=== PATIENT | female | born 1975 | race Two or more races ===

== ENCOUNTER → 2018-03-07 | Outpatient (CLI) | payer OTHER | END | disposition home or self-care (01) | LOC: MAMO-SONO 14:45 | DX: Z12.31 Encounter for screening mammogram for malignant neoplasm of breast (principal); N64.4 Mastodynia ==

== ENCOUNTER 2019-06-11 11:01 | Outpatient (CLI) | payer OTHER | END 2019-06-11 11:13 | disposition home or self-care (01) | LOC: MAMO-SONO 11:01 | DX: N64.4 Mastodynia (principal); Z12.31 Encounter for screening mammogram for malignant neoplasm of breast; Z87.898 Personal history of other specified conditions ==

== ENCOUNTER → 2020-08-25 | Outpatient (CLI) | payer OTHER | END | disposition home or self-care (01) | LOC: MAMO-SONO 08:15 | PROVIDERS: ATTEND Obstetrics & Gynecology | DX: N60.01 Solitary cyst of right breast (principal); N60.02 Solitary cyst of left breast; R05 Cough ==

== ENCOUNTER 2022-01-12 10:18 | Outpatient (CLI) | payer OTHER | END 2022-01-12 10:33 | disposition home or self-care (01) | LOC: MAMO-SONO 10:18 | PROVIDERS: ATTEND Obstetrics & Gynecology | DX: N60.21 Fibroadenosis of right breast (principal); N60.22 Fibroadenosis of left breast ==

== ENCOUNTER 2023-01-19 12:20 | Outpatient (CLI) | payer OTHER | END 2023-01-19 12:27 | disposition home or self-care (01) | LOC: MAMO-SONO 12:20 | PROVIDERS: ATTEND Obstetrics & Gynecology | DX: N60.21 Fibroadenosis of right breast (principal); N60.22 Fibroadenosis of left breast; Z12.31 Encounter for screening mammogram for malignant neoplasm of breast ==

== ENCOUNTER → 2024-03-08 13:31 | Outpatient (CLI) | payer OTHER | END | disposition home or self-care (01) | LOC: MAMO-SONO 13:17 | PROVIDERS: ATTEND Obstetrics & Gynecology | DX: N60.21 Fibroadenosis of right breast (principal); N60.22 Fibroadenosis of left breast ==

== ENCOUNTER 2024-06-01 12:18 | Outpatient (CLI) | payer OTHER | END 2024-06-01 12:20 | disposition home or self-care (01) | LOC: SONOGRAMA 12:18 | PROVIDERS: ATTEND Obstetrics & Gynecology | DX: N93.9 Abnormal uterine and vaginal bleeding, unspecified (principal) ==

== ENCOUNTER 2024-10-24 09:34 | Outpatient (CLI) | payer OTHER | END 2024-10-24 09:35 | disposition home or self-care (01) | LOC: RAD 09:34 | DX: R91.8 Other nonspecific abnormal finding of lung field (principal); R50.9 Fever, unspecified; R05.9 Cough, unspecified ==

== ENCOUNTER 2025-03-13 15:50 | Outpatient (CLI) | payer OTHER | END 2025-03-13 15:57 | disposition home or self-care (01) | LOC: MAMO-SONO 15:50 | PROVIDERS: ATTEND Obstetrics & Gynecology | DX: N60.21 Fibroadenosis of right breast (principal); N60.22 Fibroadenosis of left breast ==